=== PATIENT | female | born 1990 | race Two or more races ===

== ENCOUNTER 2021-12-28 20:36 | Emergency (ER) | payer MEDICAID ==
[~2021-12-28] VITALS: Ht 154.9 cm; Wt 113.4 kg
[2021-12-28 20:36] VITALS: BP 99/56
== END 2021-12-28 21:27 | disposition left against medical advice (07) ==
LOC: ER 20:36
DX: R55 Syncope and collapse (principal); R42 Dizziness and giddiness; R51.9 Headache, unspecified; Z53.21 Procedure and treatment not carried out due to patient leaving prior to being seen by health care provider